=== PATIENT | female | born 1940 | race Caucasian/White ===

== ENCOUNTER 2017-02-28 09:06 | Inpatient (IN) | payer MEDICARE, OTHER ==
[~2017-02-28 09:06] MED LIST: CHAGA PO; GREEN TEA1 EACH PO; TURMERIC500 M2 PO; ULTRAM50 M1 PO; [UNRECOGNIZED DRUG - MIXTURE] PO; [UNRECOGNIZED DRUG - OTHER] PO; [UNRECOGNIZED DRUG - OTHER] PO
[2017-03-01 07:04] LABS: HCT-HEMATOCRIT 34.6 % (34.0-49.0); HGB-HEMOGLOBIN 11.5 gm/dl (12.0-15.5); IMMATURE GRANULOCYTES ABSOLUTE 0.01 tho/cmm (0-0.03); IMMATURE GRANULOCYTES PERCENT 0.1 % (0-0.3); LYMPH % 12.6 % (20-45); LYMPH ABSOLUTE COUNT 0.9 tho/cmm (0.8-4.5); MCH (MEAN CORPUSCULAR HGB) 30.9 pg (28.0-32.0); MCHC MEAN CORPUSCULAR HGB CONC 33.2 % (32.0-36.0); MEAN PLATELET VOLUME 9.1 cmc (9.4-12.4); MONO % 9.3 % (0-12); MONOCYTE ABSOLUTE COUNT 0.7 tho/cmm (0.0-1.2); NEUTROPHIL ABSOLUTE COUNT 5.5 tho/cmm (1.6-8.0); NEUTROPHIL-AUTOMATED 5.5 tho/cmm (1.6-8.0); PLATELET COUNT 127 tho/cmm (150-450); RED BLOOD COUNT 3.72 mil/cmm (4.00-5.20); WHITE BLOOD COUNT 7.1 tho/cmm (4.0-10.0)
[2017-03-01 07:10] LABS: ANION GAP 14 mmol/L (0-20); BLOOD UREA NITROGEN 16 mg/dl (6-24); CALCIUM 8.2 mg/dl (8.5-10.5); CARBON DIOXIDE-VENOUS 20 mmol/L (22-32); CHLORIDE 112 mmol/l (96-110); CREATININE 0.96 mg/dl (0.50-1.10); GLUCOSE 154 mg/dL (70-110); POTASSIUM 4.3 mmol/L (3.7-5.1); SODIUM 142 mmol/L (135-145); eGFR VALUE FOR BLACK 67 mL/Min
--- NOTE | 2017-03-01 19:32 | NUR ---
VIRTUAL CARE NOTE: ASESSMENT DEFERRED. PT. SLEEPING.
[2017-03-03 06:36] LABS: HGB-HEMOGLOBIN 10.9 gm/dl (12.0-15.5); PLATELET COUNT 151 tho/cmm (150-450)
[2017-03-03] MEDS ORDERED: NORCO 5-325 TA1 EACH PO (08:20)
[2017-03-03] MEDS ORDERED: IBUPROFEN200 M2 PO (08:35)
[2017-03-03] MEDS ORDERED: SENNA-S TABLET1 EAC3 PO (08:36)
--- NOTE | 2017-03-03 09:06 | NUR ---
VIRTUAL CARE NOTE: PT RESTING ON BED STATES DOING VERY GOOD, READY FOR DISCHARGE INSTRUCTIONS. INFORMATION GIVEN TO PT. PT DENIES QUESTIONS OR CONCERNS. FLOOR STAFF WAS INFORMED OF DISCHARGE TEACHING DONE.
== END 2017-03-03 10:05 | DRG 331 ==
LOC: SHSA 09:06 → ORW 10:48 → PACU 12:24 → 5WD 13:45
PROVIDERS: ADMIT Colon & Rectal Surgery
PROC: 0DBB0ZZ Excision of Ileum, Open Approach (ICD-10-PCS; principal; 2017-02-28)
PROC: 3E0F7GC Introduction of Other Therapeutic Substance into Respiratory Tract, Via Natural or Artificial Opening (ICD-10-PCS; principal; 2017-02-28)
PROC: 0WUF0JZ Supplement Abdominal Wall with Synthetic Substitute, Open Approach (ICD-10-PCS; principal; 2017-02-28)
DX: Z43.2 Encounter for attention to ileostomy (principal); K43.5 Parastomal hernia without obstruction or gangrene; Z85.048 Personal history of other malignant neoplasm of rectum, rectosigmoid junction, and anus
CPT/HCPCS: C1781; J1170; J1335; J1644; J1650; J2270; J3010; J7030